=== PATIENT | male | born 1935 | race Caucasian/White ===

== ENCOUNTER → 2016-09-01 | Outpatient (CLI) | payer MEDICARE ==
[~2016-09-01] MED LIST: AMOX1TAB64 PO; BISA10SU65 PR; CHOL20003 PO; DIGO250T PO; DOCU-30 PO; DUTA0.5C PO; FLUT1DIS3 INH; GUAI600T22 PO; IPRA3AMP NPPB; LEVO500T33 PO; METO-93 PO; METO25TA35 PO; MULTIVITAMIN PO; NADO20TA PO; NIAC1TBM PO; NITR100C57 PO; OXYC-302 PO; TAMS-11 PO; TIOT18CA INH; TOBR3.5O OP; WARF1TAB7 PO-COUM; WARF3TAB7 PO
== END | disposition home or self-care (01) ==
LOC: WOUND 10:14
PROVIDERS: ATTEND Internal Medicine
DX: I87.332 Chronic venous hypertension (idiopathic) with ulcer and inflammation of left lower extremity (principal); L97.222 Non-pressure chronic ulcer of left calf with fat layer exposed; I48.91 Unspecified atrial fibrillation; I12.9 Hypertensive chronic kidney disease with stage 1 through stage 4 chronic kidney disease, or unspecified chronic kidney disease; N18.9 Chronic kidney disease, unspecified; J44.9 Chronic obstructive pulmonary disease, unspecified; E78.00 Pure hypercholesterolemia, unspecified; E78.5 Hyperlipidemia, unspecified; Z95.0 Presence of cardiac pacemaker; Z87.891 Personal history of nicotine dependence; Z72.89 Other problems related to lifestyle
CPT/HCPCS: 15271; Q4101

== ENCOUNTER → 2016-09-08 | Outpatient (CLI) | payer MEDICARE | END | disposition home or self-care (01) | LOC: WOUND 09:43 | PROVIDERS: ATTEND Internal Medicine | DX: I87.332 Chronic venous hypertension (idiopathic) with ulcer and inflammation of left lower extremity (principal); E11.622 Type 2 diabetes mellitus with other skin ulcer; L97.222 Non-pressure chronic ulcer of left calf with fat layer exposed; E11.22 Type 2 diabetes mellitus with diabetic chronic kidney disease; I12.9 Hypertensive chronic kidney disease with stage 1 through stage 4 chronic kidney disease, or unspecified chronic kidney disease; N18.3 Chronic kidney disease, stage 3 (moderate); I48.91 Unspecified atrial fibrillation; E78.00 Pure hypercholesterolemia, unspecified; J44.9 Chronic obstructive pulmonary disease, unspecified; E78.5 Hyperlipidemia, unspecified; Z95.0 Presence of cardiac pacemaker; Z87.891 Personal history of nicotine dependence; Z72.89 Other problems related to lifestyle | CPT/HCPCS: 29581 ==

== ENCOUNTER → 2016-09-15 | Outpatient (CLI) | payer MEDICARE | END | disposition home or self-care (01) | LOC: WOUND 10:26 | PROVIDERS: ATTEND Internal Medicine | DX: I87.332 Chronic venous hypertension (idiopathic) with ulcer and inflammation of left lower extremity (principal); L97.222 Non-pressure chronic ulcer of left calf with fat layer exposed; E11.622 Type 2 diabetes mellitus with other skin ulcer; I48.91 Unspecified atrial fibrillation; E78.00 Pure hypercholesterolemia, unspecified; J44.9 Chronic obstructive pulmonary disease, unspecified; E78.5 Hyperlipidemia, unspecified; E11.22 Type 2 diabetes mellitus with diabetic chronic kidney disease; I12.9 Hypertensive chronic kidney disease with stage 1 through stage 4 chronic kidney disease, or unspecified chronic kidney disease; N18.3 Chronic kidney disease, stage 3 (moderate); Z95.0 Presence of cardiac pacemaker; Z87.891 Personal history of nicotine dependence; Z72.89 Other problems related to lifestyle | CPT/HCPCS: G0463; WOU0463 ==

== ENCOUNTER → 2016-10-26 | Outpatient (CLI) | payer MEDICARE | END | disposition home or self-care (01) | LOC: CFH 08:58 | PROVIDERS: ATTEND Urology | DX: N20.0 Calculus of kidney (principal); M47.896 Other spondylosis, lumbar region; M16.0 Bilateral primary osteoarthritis of hip | CPT/HCPCS: 74000 ==

== ENCOUNTER → 2017-05-12 | Outpatient (CLI) | payer MEDICARE ==
[~2017-05-12] MED LIST changes: +CHOL2000 PO; -CHOL20003 PO; +DOCU-131 PO; -DOCU-30 PO; -GUAI600T22 PO; +GUAI600T31 PO; -LEVO500T33 PO; +LEVO500T47 PO; +REGADENOSON 0.4 MG/5 ML SYRINGE ONE
== END ==
LOC: CFH 07:42
PROVIDERS: ATTEND Internal Medicine Cardiovascular Disease
DX: I08.3 Combined rheumatic disorders of mitral, aortic and tricuspid valves (principal); I11.9 Hypertensive heart disease without heart failure; E78.5 Hyperlipidemia, unspecified; Z95.0 Presence of cardiac pacemaker; Z87.891 Personal history of nicotine dependence
CPT/HCPCS: 78452; 93017; 93306; A9502; J2785

== ENCOUNTER 2017-09-03 06:39 | Day surgery (SDC) | payer MEDICARE ==
[2017-08-24 09:22] VITALS: BP 161/100
[~2017-09-03] VITALS: Ht 182.9 cm; Wt 85.4 kg
[~2017-09-03 06:39] MED LIST changes: +AMLO5TAB2 PO; +DIGO125T PO; +LISI-170 PO; +LOVA40TA2 PO; +METO-95 PO; +NIAC500T85 PO; -REGADENOSON 0.4 MG/5 ML SYRINGE ONE; +UMEC62.5 INH; -WARF1TAB7 PO-COUM; +WARF1TAB74 PO-COUM; +WARF3TAB52 PO; -WARF3TAB7 PO; +WARF3TAB8 PO
[2017-09-03] MEDS ORDERED: BUPIVACAINE/PF 0.5% ONE (07:31)
[2017-09-03] MEDS ORDERED: EPINEPHRINE 1 MG/ML, 1ML ONE (07:31)
[2017-09-03] MEDS ORDERED: LACTATED RINGERS 1,000 ML IV SCH (07:43)
[2017-09-03] MEDS ORDERED: ONDANSETRON 2MG/ML, 2ML IVPush ONE (08:00)
[2017-09-03] MEDS ORDERED: FENTANYL PF 250 MCG/5ML ONE (08:00)
[2017-09-03] MEDS ORDERED: SCOPOLAMINE PATCH, 1.5MG PATCH.TD72 TD ONE (08:00)
[2017-09-03] MEDS ORDERED: ACETAMINOPHEN 500 MG TABLET PO ONE (08:00)
[2017-09-03] MEDS ORDERED: OXYcodone 5 MG/5 ML ORAL.SOL UDC ONE (11:23)
[2017-09-03] MEDS ORDERED: ACETAMINOPHEN 650 MG/20.3 ML UDC ONE (11:23)
[2017-09-03] MEDS ORDERED: ACETAMINOPHEN 325 MG TABLET PO PRN (11:30)
[2017-09-03] MEDS ORDERED: ONDANSETRON 2MG/ML, 2ML IVPush PRN (11:30)
[2017-09-03] MEDS ORDERED: morphine SULFATE 10 MG/ML, 1ML IV PRN (11:30)
[2017-09-03] MEDS ORDERED: OXYcodone 5 MG/5 ML ORAL.SOL UDC PO PRN (11:30)
[2017-09-03] MEDS ORDERED: FENTANYL PF 100 MCG/2ML IV PRN (11:30)
[2017-09-03] MEDS ORDERED: HYDROcodone/APAP 7.5-325MG/15ML UDC PO PRN (11:30)
[2017-09-03] MEDS ORDERED: SUCCINYLCHOLINE 20 MG/ML, 10ML ONE (12:27)
[2017-09-03] MEDS ORDERED: NEOSTIGMINE 1 MG/ML, 10ML ONE (12:27)
[2017-09-03] MEDS ORDERED: CEFAZOLIN 1,000 MG ONE (12:27)
[2017-09-03] MEDS ORDERED: PROPOFOL 10 MG/ML, 20ML ONE (12:27)
[2017-09-03] MEDS ORDERED: GLYCOPYRROLATE 0.2MG/1ML, 5ML ONE (12:27)
[2017-09-03] MEDS ORDERED: DEXAMETHASONE 4 MG/ML, 1ML ONE (12:27)
[2017-09-03] MEDS ORDERED: ONDANSETRON 2MG/ML, 2ML ONE (12:27)
== END 2017-09-03 16:00 | disposition home or self-care (01) ==
LOC: OUT 06:39
PROVIDERS: ATTEND Surgery
DX: K40.90 Unilateral inguinal hernia, without obstruction or gangrene, not specified as recurrent (principal); K42.9 Umbilical hernia without obstruction or gangrene; N40.0 Benign prostatic hyperplasia without lower urinary tract symptoms; I10 Essential (primary) hypertension; J44.9 Chronic obstructive pulmonary disease, unspecified; E03.9 Hypothyroidism, unspecified
CPT/HCPCS: 49505; 49585; C1781; J0171; J0330; J0690; J1100; J2405; J2704; J3010; J3490; J7120; J2710

== ENCOUNTER 2019-01-19 10:40 | Day surgery (SDC) | payer MEDICARE ==
[~2019-01-19] VITALS: Ht 182.9 cm; Wt 81.8 kg
[2019-01-19 13:17] VITALS: BP 165/92
== END 2019-01-19 16:58 | disposition home or self-care (01) ==
LOC: CACL 10:40
PROVIDERS: ATTEND Internal Medicine Cardiovascular Disease
DX: Z45.010 Encounter for checking and testing of cardiac pacemaker pulse generator [battery] (principal); I48.2 Chronic atrial fibrillation; E11.22 Type 2 diabetes mellitus with diabetic chronic kidney disease; E11.65 Type 2 diabetes mellitus with hyperglycemia; I12.9 Hypertensive chronic kidney disease with stage 1 through stage 4 chronic kidney disease, or unspecified chronic kidney disease; N18.3 Chronic kidney disease, stage 3 (moderate); J44.9 Chronic obstructive pulmonary disease, unspecified; E78.00 Pure hypercholesterolemia, unspecified; Z79.01 Long term (current) use of anticoagulants; Z79.899 Other long term (current) drug therapy; Z87.891 Personal history of nicotine dependence
CPT/HCPCS: 33227; 36415; 80048; 85025; 85610; 93005; 99156; 99157; C1786; J0690; J2250; J3010

== ENCOUNTER → 2021-01-15 | Outpatient (CLI) | payer MEDICARE ==
[~2021-01-15] MED LIST changes: +ALBU18HF IH; +AMLO-150 PO; -AMLO5TAB2 PO; +CHOL200074 PO; -DIGO125T PO; +DIGO125T85 PO; -DIGO250T PO; +DIGO250T3 PO; +FLUT9.9S NAS; +GUAI400T81 PO; -IPRA3AMP NPPB; +IPRA3AMP30 NPPB; +MULT-508 PO; -NADO20TA PO; +NADO20TA2 PO; -OXYC-302 PO; +OXYC1TAB14 PO
== END | disposition home or self-care (01) ==
LOC: CFH 10:44
PROVIDERS: ATTEND Urology
DX: N20.0 Calculus of kidney (principal)
CPT/HCPCS: 74018

== ENCOUNTER → 2021-01-15 | Outpatient (CLI) | payer MEDICARE | END | disposition home or self-care (01) | LOC: CFH 08:29 | PROVIDERS: ATTEND Internal Medicine Cardiovascular Disease | DX: I08.3 Combined rheumatic disorders of mitral, aortic and tricuspid valves (principal); I11.0 Hypertensive heart disease with heart failure; I50.33 Acute on chronic diastolic (congestive) heart failure; Z87.891 Personal history of nicotine dependence | CPT/HCPCS: 93306 ==